=== PATIENT | male | born 1960 | race African-American/Black ===

== ENCOUNTER 2019-06-24 14:17 | Outpatient (CLI) | payer OTHER ==
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
== END 2019-06-24 14:18 | disposition home or self-care (01) ==
LOC: BICRAD 14:17
DX: S99.921A Unspecified injury of right foot, initial encounter (principal); M19.071 Primary osteoarthritis, right ankle and foot

== ENCOUNTER 2019-12-10 19:59 | Emergency (ER) | payer SELFPAY ==
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
[2019-12-10] MEDS ORDERED: Ketorolac Tromethamine 30 MG/ML VIAL ONE (23:13)
[2019-12-10] MEDS ORDERED: Cyclobenzaprine 10 MG TAB ONE (23:17)
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
== END 2019-12-11 00:33 | disposition home or self-care (01) ==
LOC: ERS 19:59
DX: S82.001A Unspecified fracture of right patella, initial encounter for closed fracture (principal); M54.2 Cervicalgia; M25.512 Pain in left shoulder; M25.511 Pain in right shoulder; R51 Headache; M79.631 Pain in right forearm; I10 Essential (primary) hypertension; J44.9 Chronic obstructive pulmonary disease, unspecified; F17.210 Nicotine dependence, cigarettes, uncomplicated; V43.52XA Car driver injured in collision with other type car in traffic accident, initial encounter
CPT/HCPCS: 72170; 96372; J1885; L0120

== ENCOUNTER 2024-06-04 11:47 | Emergency (ER) | payer OTHER, SELFPAY ==
[2024-06-04] MEDS ORDERED: Boostrix 0.5 ML (Tdap) VIAL (>/=7 yrs of age) ONE (12:34)
[2024-06-04] MEDS ORDERED: Lidocaine 1% w/Epinephrine 1:100K 20 ML VIAL ONE (12:34)
[2024-06-04] MEDS ORDERED: Bacitracin 1 PK ONE (13:33)
== END 2024-06-04 13:36 | disposition home or self-care (01) ==
LOC: ERS 11:47
DX: S01.81XA Laceration without foreign body of other part of head, initial encounter (principal); Z87.891 Personal history of nicotine dependence; W22.8XXA Striking against or struck by other objects, initial encounter; Z23 Encounter for immunization
CPT/HCPCS: 12013; 90471; 90715

== ENCOUNTER 2024-06-11 18:37 | Emergency (ER) | payer OTHER | END 2024-06-11 19:20 | disposition home or self-care (01) | LOC: ERS 18:37 | DX: S01.81XD Laceration without foreign body of other part of head, subsequent encounter (principal); I10 Essential (primary) hypertension; J44.9 Chronic obstructive pulmonary disease, unspecified; Z87.891 Personal history of nicotine dependence; X58.XXXD Exposure to other specified factors, subsequent encounter ==